=== PATIENT | male | born 1985 | race African-American/Black ===

== ENCOUNTER 2017-10-09 10:23 | Emergency (ER) | payer SELFPAY ==
--- NOTE | 2017-10-09 10:43 | ER Document Report ---
HPI - HPI Patient complains to provider of: Sore throat Onset: Yesterday Onset/Duration: Sudden Quality of pain: Throbbing Pain Level: 5 Context: 32-year-old male complaining of sore throat fever and body aches. His 3 children have strep throat. No history of mononucleosis. No abdominal pain nausea or vomiting. Associated Symptoms: None Exacerbated by: Denies Relieved by: Denies Similar symptoms previously: No - ROS ROS below otherwise negative: Yes Systems Reviewed and Negative: Yes All other systems reviewed and negative - CONSTITUTIONAL Constitutional: REPORTS: Fever, Chills - EENT EENT: REPORTS: Sore Throat Past Medical History - General Information source: Patient - Social History Smoking Status: Never Smoker Frequency of alcohol use: None Drug Abuse: None Lives with: Family Family History: Reviewed & Not Pertinent Patient has suicidal ideation: No Patient has homicidal ideation: No - Medical History Medical History: Negative Renal/ Medical History: Denies: Hx Peritoneal Dialysis Surgical Hx: Negative Vertical Provider Document - CONSTITUTIONAL Agree With Documented VS: Yes Exam Limitations: No Limitations General Appearance: No Apparent Distress - INFECTION CONTROL TRAVEL OUTSIDE OF THE [place] IN LAST 30 DAYS: No - HEENT HEENT: Normocephalic, Pharyngeal Exudate, Pharyngeal Erythema. negative: Conjuctival Injection, Tympanic Membrane Red Notes: Exudative tonsils bilateral, uvula is midline, no peritonsillar abscess or cellulitis. - NECK Neck: Supple. negative: Lymphadenopathy-Left, Lymphadenopathy-Right - RESPIRATORY Respiratory: Breath Sounds Normal, No Respiratory Distress O2 Sat by Pulse Oximetry: 99 - CARDIOVASCULAR Cardiovascular: Regular Rate, Regular Rhythm - GI/ABDOMEN Gastrointestinal: Abdomen Soft, Abdomen Non-Tender, No Organomegaly, Normal Bowel Sounds - MUSCULOSKELETAL/EXTREMETIES Musculoskeletal/Extremeties: JOSE LUIS ZARATE - NEURO Level of Consciousness: Awake, Alert - DERM Integumentary: Warm, Dry, No Rash Course - Re-evaluation Re-evalutation: 10/09/17 11:14 Patient states he does not need a work note he does not go back until October 13 - Vital Signs Vital signs: Temp Pulse Resp BP Pulse Ox 98.8 F 88 20 140/71 H 99 10/09/17 10:27 10/09/17 10:27 10/09/17 10:27 10/09/17 10:27 10/09/17 10:27 Discharge - Discharge Clinical Impression: Exudative tonsillitis Condition: Good Disposition: HOME, SELF-CARE Instructions: Use of [id number] Ibuprofen ([facility]), Penicillin V K ([facility]), Sore Throat ([facility]), Steroid Medication, Tonsillitis ([facility]) Additional Instructions: Drink plenty of fluids Rest If you are still feeling sick in a week need to be rechecked for mononucleosis Return to the emergency room sooner if worse Finish the penicillin even if you feel better Prescriptions: Penicillin V Potassium [Penicillin Vk 500 mg Tablet] 500 mg PO QID #40 tablet
[2017-10-09] MEDS ORDERED: ONDANSETRON 4 MG TAB.RAPDIS PO ONE (11:11)
[2017-10-09] MEDS ORDERED: PENICILLIN V POTASSIUM 500 MG TABLET PO ONE (11:11)
[2017-10-09] MEDS ORDERED: ACETAMINOPHEN 325 MG TABLET PO ONE (11:11)
[2017-10-09] MEDS ORDERED: DEXAMETHASONE 4 MG TABLET PO ONE (11:11)
[2017-10-09] MEDS ORDERED: IBUPROFEN 800 MG TABLET PO ONE (11:11)
[2017-10-09 11:26] VITALS: BP 134/66
== END 2017-10-09 11:30 | disposition home or self-care (01) ==
LOC: ER 10:23
DX: J03.90 Acute tonsillitis, unspecified (principal); Z20.818 Contact with and (suspected) exposure to other bacterial communicable diseases; R50.9 Fever, unspecified
CPT/HCPCS: 99282; S0119

== ENCOUNTER 2020-02-24 11:42 | Emergency (ER) | payer SELFPAY ==
[2020-02-24 12:14] VITALS: BP 124/72
--- NOTE | 2020-02-24 12:21 | ER Document Report ---
ED General - General Chief Complaint: Other Stated Complaint: THROAT IRRITATION,SWELLING Time Seen by Provider: 02/24/20 12:06 TRAVEL OUTSIDE OF THE [place] IN LAST 30 DAYS: No - HPI Notes: Chief complaint: Sore throat HPI: Generally healthy 34-year-old male with no regular medications no known allergies presents with sore throat and swelling of tonsils present for a little over a week. Is been seen here several times previously with exudative tonsillitis in the past. School-aged children at home who have had similar symptoms. Denies travel outside the area. Denies exposure to individuals known to have COVID-19 infection. - Related Data Allergies/Adverse Reactions: No Known Allergies Allergy (Unverified 10/09/17 10:25) Past Medical History - General Information source: Patient - Social History Smoking Status: Never Smoker Chew tobacco use (# tins/day): No Frequency of alcohol use: None Drug Abuse: None Family History: Reviewed & Not Pertinent Patient has homicidal ideation: No Renal/ Medical History: Denies: Hx Peritoneal Dialysis Review of Systems - Review of Systems Notes: Constitutional: Subjective fever. HENT: As per HPI t. Eyes: Negative for visual changes. Cardiovascular: Negative for chest pain. Respiratory: Negative for shortness of breath. Gastrointestinal: Negative for abdominal pain, vomiting or diarrhea. Genitourinary: Negative for dysuria. Musculoskeletal: Negative for back pain. Skin: Negative for rash. Neurological: Negative for headaches, weakness or numbness. 10 point ROS negative except as marked above and in HPI. Physical Exam - Vital signs Vitals: Temp Pulse BP Pulse Ox 98.1 F 59 L 128/70 H 98 02/24/20 11:47 02/24/20 11:47 02/24/20 11:47 02/24/20 11:47 - Notes Notes: GENERAL: Well-developed well-nourished appearing in no acute distress. SKIN: Good turgor no rashes. HEAD: Normocephalic atraumatic. EYES: PERRLA. EOMI. Conjunctivae and sclerae clear. EARS: CANALS AND TMS CLEAR. NOSE: CLEAR. MOUTH: Moist mucosa. Good dentition. No stridor or edema. No drooling. THROAT: Tonsils mildly enlarged with small amount of white exudate bilaterally. NECK: Supple. No masses or thyromegaly. No adenopathy. Carotids 2+ without bruits. No JVD. BACK: Symmetrical without tenderness. CHEST: Respirations unlabored. Breath sounds clear and symmetrical. HEART: Regular rhythm. No murmur gallop or rub. ABDOMEN: Soft nontender without masses, organomegaly or rebound. Bowel sounds normally active. No bruits. GENITALIA: Deferred. EXTREMITIES: No edema. No calf tenderness. Cap refill less than 1.5 seconds. Dorsalis pedis and posterior tibial pulses 3+ and symmetrical. NEUROLOGICAL: GCS 15. Alert and oriented x3. Normal gait. Fluent speech. Cranial nerves II through XII intact. Sensorimotor and cerebellar normal. Normal tone. PSYCHIATRIC: Appropriate affect. Course - Vital Signs Vital signs: Temp Pulse Resp BP Pulse Ox 98.2 F 54 L 14 124/72 99 02/24/20 12:14 02/24/20 12:07 02/24/20 12:07 02/24/20 12:07 02/24/20 12:07 Discharge - Discharge Clinical Impression: Exudative tonsillitis Condition: Stable Disposition: HOME, SELF-CARE Instructions: Amoxicillin ([facility]), Tonsillitis ([facility]) Additional Instructions: Return here as needed for new or worsening symptoms: Pain that is worsening or unimproved Uncontrolled vomiting High fever or shaking chills Overall worsening Follow-up with referral clinic as needed Prescriptions: Amoxicillin 1 tab PO TID #30 tab Referrals: [facility] [Provider Group] - Follow up as needed
== END 2020-02-24 12:30 | disposition home or self-care (01) ==
LOC: ER 11:42
DX: J03.90 Acute tonsillitis, unspecified (principal)
CPT/HCPCS: 99282

== ENCOUNTER → 2020-09-01 | Outpatient (CLI) | payer SELFPAY ==
[2020-09-01 11:27] VITALS: BP 121/59
--- NOTE | 2020-09-01 11:27 | ER RDC ASSESSMENT REPORT ---
Intake - In the Last 14 days Have you traveled outside [place]?: No Have you been in close contact with someone CONFIRMED: Yes Worked in Healthcare?: No - Symptoms Subjective Fever([place] feverish): No Chills: No Muscule Aches: No Runny Nose: Yes Sore Throat: Yes Cough (New or worsening chronic cough): No Shortness of breath: No Nausea or Vomiting: No Headache: No Abdominal Pain: No Diarrhea(3 or more loose stools in last 24 hours): No - Do you have any of the following Chronic lung disease: Asthma or emphysema or COPD: No Cystic Fibrosis: No Diabetes: No High Blood Pressure: No Cardiovascular Disease: No Chronic Kidney Disease: No Chronic Liver Disease: No Chronic blood disorder like Sickle Cell Disease: No Weak immune system due to disease or medication: No Neurologic condition that limits movement: No Developmental delay - Moderate to Severe: No Recent (within past 2 weeks) or current : No Morbid Obesity (>100 pounds over ideal weight): No - Objective Temperature: 98.5 F Pulse Rate: 60 Respiratory Rate: 18 Blood Pressure: 121/59 O2 Sat by Pulse Oximetry: 99 Objective: Patient is a well-appearing 35-year-old male, who presents today for COVID-19 screening. Disposition: Home; Selfcare General - General Stated Complaint: Upper respiratory symptoms Mode of Arrival: Ambulatory Information source: Patient Notes: The patient was evaluated during the global COVID-19 pandemic. That diagnosis was suspected/considered upon initial presentation. Their evaluation, treatment, and testing was consistent with current guidelines for patients who present with complaints or symptoms that may be related to COVID-19. Patient reports having close contact exposure to a COVID-19 lab confirmed positive individual. - HPI Patient complains to provider of: Upper respiratory symptoms Onset: Yesterday Onset/Duration: Gone Quality of pain: No pain Severity: None Pain Level: Denies Associated symptoms: Rhinnorhea, Sore throat Exacerbated by: Denies Relieved by: Denies Similar symptoms previously: No Recently seen / treated by doctor: No - Related Data Allergies/Adverse Reactions: No Known Allergies Allergy (Unverified 10/09/17 10:25) Past Medical History - Social History Smoking Status: Current Every Day Smoker Cigarette use (# per day): Yes - Half pack per day Chew tobacco use (# tins/day): No Smoking Education Provided: Yes Frequency of alcohol use: Occasional Drug Abuse: None Occupation: Self-employed Lives with: Family Family History: Reviewed & Not Pertinent Patient has suicidal ideation: No Patient has homicidal ideation: No Renal/ Medical History: Denies: Hx Peritoneal Dialysis Physical Exam - General General appearance: Appears well In distress: None Notes: PHYSICAL EXAMINATION: GENERAL: Well-appearing with No Acute Distress noted. HEAD: Atraumatic, Normocephalic. EYES: Sclera anicteric, Conjunctiva are pink and moist. ENT: Nares patent. Moist mucous membranes. NECK: Normal range of motion, supple without lymphadenopathy. LUNGS: CTAB and equal. No wheezes rales or rhonchi. HEART: Regular rate and rhythm without murmurs. ABDOMEN: Soft, nontender, normal bowel sounds, no guarding. EXTREMITIES: Normal range of motion, no pitting edema. No cyanosis. BACK: No midline or CVA tenderness. No step-off or deformity. NEUROLOGICAL: Cranial nerves grossly intact. Normal speech. Normal gait. PSYCH: Calm, Cooperative, and answers questions appropriately. Normal mood and affect. SKIN: Warm, Dry, Normal color and Turgor, No obvious lesions or rash noted. Diagnostic Results Laboratory Results: Patient advised at this time they are considered a Person Under Investigation (PUI) for the COVID-19 Coronavirus. They have been made aware it is currently taking 3 to 5 days to receive their results. Patient advised The [facility] Department will call to notify them of a POSITIVE result, and an [facility] sub assembly team worker will call to notify them of a NEGATIVE result. Patient Education/Counseling Counseling/Education: Patient presents with upper respiratory symptoms worrisome for possible COVID- 19. Patient does not have symptoms worrisome as an emergency such as difficulty breathing, shortness of breath, chest pain, pressure, confusion or cyanosis. Pa daniel appears suitable for discharge. Patient's vital signs are stable and patient is nontoxic in appearance. Good return precautions have been discussed with patient, patient verbalized understanding and is agreeable with discharge plan of care at this time. Patient provided COVID-19 discharge instructions to include: As a person under investigation for COVID-19, the [facility], division of public health advises you to adhere to the following guidance until your test results are reported to you. If your test result is positive, you will receive additional information from your provider and your local health department at that time. Remain at home until you are cleared by the health provider or public health authorities. Keep a log of visitors to your home, notify any visitors to your home of your isolation status. If you plan to move to a new address or leave the county, notify the local health department in your County. Call your doctor or seek care if you have an urgent medical need. Before seeking medical care, call ahead to get instructions from the provider before arriving at the medical office clinic or hospital. Notify them that you are being tested for the virus that causes COVID-19 so that arrangements can be made, as necessary, to prevent transmission to others in the healthcare setting. Next, notify the local health department in your county. If a medical emergency arises and you need to call 911, inform dispatch and the first responders that you are being tested for the virus that causes COVID-19. Next, notify the local health department in your county. Patient provided education on smoking cessation and the harmful effects of smoking, especially in the presence of Co-morbid conditions such as Hypertension, Diabetes, and/or other chronic illnesses. Patient verbalized understanding of smoking cessation education, and the increased health benefits of quitting. Guidance for worsening S/SX: For worsening symptoms, patient has been advised to contact their Primary Care Provider, or go to the nearest Emergency Department. RDC Discharge - Discharge Clinical Impression: COVID-19 Screening URI (upper respiratory infection) Qualifiers: URI type: unspecified URI Qualified Code(s): J06.9 - Acute upper respiratory infection, unspecified Condition: Stable Disposition: Home; Selfcare
== END ==
LOC: RDC 09:34
PROVIDERS: ATTEND Nurse Practitioner Family
DX: J06.9 Acute upper respiratory infection, unspecified (principal); Z20.828 Contact with and (suspected) exposure to other viral communicable diseases; J02.9 Acute pharyngitis, unspecified; J34.89 Other specified disorders of nose and nasal sinuses; F17.210 Nicotine dependence, cigarettes, uncomplicated; Z71.6 Tobacco abuse counseling
CPT/HCPCS: 87635; 99201; 99211; C9803